=== PATIENT | male | born 1980 ===

== ENCOUNTER 2016-09-18 06:32 | Emergency (ER) | payer OTHER ==
[2016-09-18 06:39] VITALS: BMI 25.6
[2016-09-18 06:45] VITALS: BP 137/82; TEMP 98
[2016-09-18] MEDS ORDERED: Oxycodone/Acetaminophen 5/325 mg Tab PO STA (07:22)
--- NOTE | 2016-09-18 07:32 | ED PDOC ---
Arrival/HPI - General Chief Complaint: Lower Extremity Problem/Injury Time Seen by Provider: 09/18/16 07:01 Historian: Patient - History of Present Illness Narrative History of Present Illness (Text): 09/18/16 07:20 Bandar Villagomez is a 36 year old male, whose past medical history includes herniated disc, who presents to the emergency department complaining of lower back pain radiating to his buttocks and left calf for three days. Patient states that he had an MRI 12 days ago and had injections 3 days ago for his herniated disc. Patient was prescribed medication such as ibuprofen, Gabapentin , and Percocet which ran out three days ago. Patient denies any fever, chills, chest pain, shortness of breath, nausea, vomiting, diarrhea, urinary symptoms, neck pain, headache, dizziness, or any other complaints. Time/Duration: < week Symptom Onset: Gradual Symptom Course: Worsening Severity Level: Moderate Activities at Onset: Light Modifying Factors (Text): Pain worsens with movement of area Context: Home Past Medical History - Provider Review Nursing Documentation Reviewed: Yes - Infectious Disease Hx of Infectious Diseases: None - Musculoskeletal/Rheumatological Hx Back Pain: Yes Hx Herniated Disk: Yes - Psychiatric Hx Substance Use: No - Surgical History Hx Orthopedic Surgery: Yes (bilateral knee) - Anesthesia Hx Anesthesia: No Family/Social History - Physician Review Nursing Documentation Reviewed: Yes Family/Social History: No Known Family HX Smoking Status: Never Smoked Hx Alcohol Use: Yes Frequency of alcohol use: Socially Hx Substance Use: No Allergies/Home Meds Allergies/Adverse Reactions: Allergies No Known Allergies Allergy (Verified 08/23/16 08:31) Home Medications: Home Meds Medication Instructions Recorded Confirmed Ibuprofen [Motrin] 800 mg PO Q6H PRN 06/02/16 09/18/16 Gabapentin [Neurontin] 100 mg PO TID 09/18/16 09/18/16 Review of Systems - Review of Systems Constitutional: absent: Fevers, Night Sweats Eyes: absent: Vision Changes ENT: absent: Hearing Changes Respiratory: absent: SOB, Cough Cardiovascular: absent: Chest Pain Gastrointestinal: absent: Abdominal Pain Genitourinary Male: absent: Urinary Output Changes Musculoskeletal: Back Pain, Other (Left Calf Pain radiating up left side ) Skin: absent: Rash Neurological: absent: Headache Endocrine: absent: Diaphoresis Hemo/Lymphatic: absent: Easy Bleeding Psychiatric: absent: Depression Physical Exam Vital Signs Reviewed: Yes Vital Signs Temp Pulse Resp BP Pulse Ox 09/18/16 07:42 82 18 100 09/18/16 06:32 98.0 F 78 16 137/82 91 L Temperature: Afebrile Blood Pressure: Normal Pulse: Regular Respiratory Rate: Normal Appearance: Positive for: Well-Appearing, Non-Toxic, Comfortable Pain Distress: None Mental Status: Positive for: Alert and Oriented X 3 - Systems Exam Head: Present: Atraumatic, Normocephalic Pupils: Present: PERRL Extroacular Muscles: Present: EOMI Conjunctiva: Present: Normal Mouth: Present: Moist Mucous Membranes Neck: Present: Normal Range of Motion Respiratory/Chest: Present: Clear to Auscultation, Good Air Exchange. No: Respiratory Distress, Accessory Muscle Use Cardiovascular: Present: Regular Rate and Rhythm, Normal S1, S2. No: Murmurs Abdomen: Present: Normal Bowel Sounds. No: Tenderness, Distention, Peritoneal Signs Back: Present: Other (Left Lower Lumbar and Buttocks Tenderness) Upper Extremity: Present: Normal Inspection. No: Cyanosis, Edema Lower Extremity: Present: Normal Inspection. No: Edema Neurological: Present: GCS=15, CN II-XII Intact, Speech Normal Skin: Present: Warm, Dry, Normal Color. No: Rashes Psychiatric: Present: Alert, Oriented x 3, Normal Insight, Normal Concentration Medical Decision Making ED Course and Treatment: 09/18/16 07:20 Impression: 36 year old male complaining of left-sided back pain radiating to his buttocks for three days Differential Diagnosis included but are not limited to: Sciatica Plan: -- Percocet -- Reassess and disposition Prior Visits: Notes and results from previous visits were reviewed. Patient last seen in the ED on 08/23/16 for worsening lower back pain. Patient was discharged home. Progress Notes: 09/18/16 07:58 Patient was explained that he was prescribed narcotics on 09/02/15 and 09/10/15 according to the [facility] aware website. He was aware of this. I explained to him that I can offer him dose of percocet now and that I could then provide alternate methods of pain control. He agreed to flexeril for a muscle relaxant. He already has gabapentin at home and a f/u with his doctor on Wednesday. He was very upset that we couldn't prescribe percocet and left quickly ambulating with a steady gait after he received his medication. - Medication Orders Current Medication Orders: Discontinued Medications Oxycodone/Acetaminophen (Percocet 5/325 Mg Tab) 1 tab PO STAT STA Stop: 09/18/16 07:23 Last Admin: 09/18/16 07:36 Dose: 1 TAB - Scribe Statement The provider has reviewed the documentation as recorded by the Akira Horan Provider Scribe Attestation: All medical record entries made by the Scribe were at my direction and personally dictated by me. I have reviewed the chart and agree that the record accurately reflects my personal performance of the history, physical exam, medical decision making, and the department course for this patient. I have also personally directed, reviewed, and agree with the discharge instructions and disposition. Disposition/Present on Arrival - Present on Arrival Any Indicators Present on Arrival: No History of DVT/PE: No History of Uncontrolled Diabetes: No Urinary Catheter: No History of Decub. Ulcer: No History Surgical Site Infection Following: None - Disposition Have Diagnosis and Disposition been Completed?: Yes Diagnosis: Sciatica Disposition: HOME/ ROUTINE Disposition Time: 07:42 Patient Plan: Discharge Condition: IMPROVED Discharge Instructions (ExitCare): Sciatica (ED) Additional Instructions: Mr Villagomez, thank you for letting us take care of you today. Your provider was Dr. Ralph. You were treated for Sciatica. The emergency medical care you received today was directed at your acute symptoms. If you were prescribed any medication , please fill it and take as directed. It may take several days for your symptoms to resolve. Return to the Emergency Department if your symptoms worsen , do not improve, or if you have any other problems. Please contact your doctor or call one of the physicians/clinics you have been referred to that are listed on the Patient Visit Information form that is included in your discharge packet. Bring any paperwork you were given at discharge with you along with any medications you are taking to your follow up visit. Our treatment cannot replace ongoing medical care by a primary care provider (PCP) outside of the emergency department. Thank you for allowing the [facility] hospital team to be part of your care today. If you had an X-Ray or CT scan: A Radiologist will review the ED reading if any change in treatment is needed we will contact you. If you had a blood, urine, or wound culture: It will take several days for the results, if any change in treatment is needed we will contact you. If you had an STI test: It will take 48 hours for the results. Please call after 1 week if you have not heard back. Prescriptions: Cyclobenzaprine [Cyclobenzaprine HCl] 10 mg PO Q8 #20 tab Referrals: [facility] Elliot Hernandez, [Non-Staff] - Follow up with primary Forms: WORK NOTE
[2016-09-18 07:42] VITALS: PULSE 82; RESP 18; O2SAT 100
== END 2016-09-18 07:42 | disposition home or self-care (01) ==
LOC: ED 06:32
DX: M54.30 Sciatica, unspecified side (principal)

== ENCOUNTER 2017-01-06 19:33 | Emergency (ER) | payer OTHER ==
[2017-01-06 19:48] VITALS: BMI 24.3
[2017-01-06 19:49] VITALS: BP 146/75; PULSE 80; RESP 18; TEMP 98; O2SAT 100
--- NOTE | 2017-01-06 20:04 | ED PDOC ---
Arrival/HPI - General Chief Complaint: Back Pain Time Seen by Provider: 01/06/17 19:45 - History of Present Illness Narrative History of Present Illness (Text): 01/06/17 20:04 Patient presents complaining of back pain. States the location is in the L. lower lumbar region, feels like muscle spasms. Worst with movement and palpation. Pt states this feels identical to previous back pain quality that has happened in the past. Denies fevers/chills, denies IVDA, denies any lower extremity weakness/numbness/paresthesias. Pt denies saddle anesthesia. Denies any urinary freq or retention. Denies bowel dysfunction/irregularity/ incontinence/constipation. Past Medical History - Provider Review Nursing Documentation Reviewed: Yes - Infectious Disease Hx of Infectious Diseases: None - Cardiac Hx Cardiac Disorders: No - Pulmonary Hx Respiratory Disorders: No - Neurological Hx Neurological Disorder: No - HEENT Hx HEENT Disorder: No - Renal Hx Renal Disorder: No - Endocrine/Metabolic Hx Endocrine Disorders: No - Hematological/Oncological Hx Blood Disorders: No - Integumentary Hx Dermatological Disorder: No - Musculoskeletal/Rheumatological Hx Musculoskeletal Disorders: Yes Hx Back Pain: Yes Hx Herniated Disk: Yes - Gastrointestinal Hx Gastrointestinal Disorders: No - Genitourinary/Gynecological Hx Genitourinary Disorders: No - Psychiatric Hx Psychophysiologic Disorder: No Hx Substance Use: No - Surgical History Hx Orthopedic Surgery: Yes (bilateral knee, herniated disc) - Anesthesia Hx Anesthesia: No Family/Social History Family/Social History: Unknown Family HX Smoking Status: Never Smoked Hx Alcohol Use: Yes Hx Substance Use: No Allergies/Home Meds Allergies/Adverse Reactions: Allergies No Known Allergies Allergy (Verified 01/06/17 19:49) Home Medications: Home Meds Medication Instructions Recorded Confirmed Ibuprofen [Motrin] 800 mg PO Q6H PRN 06/02/16 01/06/17 Gabapentin [Neurontin] 100 mg PO TID 09/18/16 01/06/17 Physical Exam - Physical Exam Narrative Physical Exam (Text): - Review of Systems Constitutional: Normal. absent: Fatigue, Weight Change, Fevers Eyes: Normal ENT: denies sore throat, denies tristhmus Respiratory: Normal. absent: SOB, Cough, Sputum Cardiovascular: absent: Chest Pain, Palpitations, Syncope Gastrointestinal: Normal. absent: Abdominal Pain, Diarrhea, Nausea, Vomiting Genitourinary: Normal. absent: Dysuria, Frequency, Hematuria Musculoskeletal: back pain. absent: Arthralgias, Neck Pain Skin: no rashes, no erythema Neurological: absent: Focal Weakness Endocrine: Normal Hemo/Lymphatic: Normal Psychiatric: No suicidal or homicidal ideations Physical exam Patient appears age appropriate in no distress, speaking full sentences without difficulty Increased hypertonicity appreciated in the left lower lumbar region and left PSIS, pain quality reproduced with palpation. No midline tenderness. FROM of pt' s cervical, thoracic, lumbar, and sacral regions appreciated, active/passive without any difficulty. Lower extremities with full neurological and vascular intact. Steady gait. - Systems Exam Head: Present: Atraumatic, Normocephalic Pupils: Present: PERRL Extroacular Muscles: Present: EOMI Conjunctiva: Present: Normal Mouth: Present: Moist Mucous Membranes Neck: Present: Normal Range of Motion. No: MIDLINE TENDERNESS, Paraspinal Tenderness Respiratory/Chest: Present: Clear to Auscultation, Good Air Exchange. No: Respiratory Distress, Accessory Muscle Use, Tachypneic Cardiovascular: Present: Regular Rate and Rhythm, Normal S1, S2, Peripheal Pulses Present. No: Murmurs Abdomen: Present: Normal Bowel Sounds. No: Tenderness, Distention, Peritoneal Signs, Rebound, Guarding Back: No: Midline Tenderness Upper Extremity: Present: Normal Inspection. No: Cyanosis, Edema Lower Extremity: Present: Normal Inspection. No: Edema Neurological: Present: GCS=15, Speech Normal, cranial nerves II through XII fully intact with no cerebellar abnormality, neurosensory fully intact. No focal neurological deficits. Skin: Present: Warm, Dry, Normal Color. No: Rashes Lymphatic: Present: OX3, NI, NC Psychiatric: Present: Alert, Oriented x 3, Normal Insight, Normal Concentration Vital Signs Reviewed: Yes Vital Signs Temp Pulse Resp BP Pulse Ox 01/06/17 19:35 98.0 F 80 18 146/75 100 Temperature: Afebrile Blood Pressure: Normal Pulse: Regular Respiratory Rate: Normal Appearance: Positive for: Well-Appearing Pain Distress: Mild Mental Status: Positive for: Alert and Oriented X 3 Medical Decision Making ED Course and Treatment: pt received toradol and valium. Pt states is not driving home. Based on hx and physical, no suspicion for renal involvement, cord impingement or epidural/ spinal abscess stable for dc home. instructed not to drive/operate machinery/drink/do drugs with medication Pt verbalized understands to return to the ER right away for new or worsening symptoms or for inability to f/u with PMD or specialist as instructed. Patient verbalized full agreement with and understanding of discharge instructions. States that he agrees with the plan and disposition. Verbalized and repeated discharge instructions and plan. I have given the patient opportunity to ask any additional questions. - Medication Orders Current Medication Orders: Discontinued Medications Diazepam (Valium) 2 mg PO ONCE ONE Stop: 01/06/17 20:01 Last Admin: 01/06/17 20:12 Dose: 2 mg Ketorolac Tromethamine (Toradol) 15 mg IM ONCE ONE Stop: 01/06/17 20:01 Last Admin: 01/06/17 20:12 Dose: 15 mg Disposition/Present on Arrival - Present on Arrival Any Indicators Present on Arrival: No History of DVT/PE: No History of Uncontrolled Diabetes: No Urinary Catheter: No History of Decub. Ulcer: No History Surgical Site Infection Following: None - Disposition Have Diagnosis and Disposition been Completed?: Yes Diagnosis: Back pain Disposition: HOME/ ROUTINE Disposition Time: 20:01 Patient Plan: Discharge Condition: GOOD Discharge Instructions (ExitCare): Sciatica (ED), Back Pain (ED) Additional Instructions: PLEASE RETURN TO THE EMERGENCY DEPARTMENT FOR NEW OR WORSENING SYMPTOMS. RETURN RIGHT AWAY IF YOU CANNOT FOLLOW UP WITH YOUR PRIMARY CARE DOCTOR, CLINIC, OR SPECIALIST IN 1-2 DAYS. Prescriptions: Diazepam [Valium] 2 mg PO DAILY PRN #5 tab PRN Reason: Pain, Severe (8-10) Referrals: Rubens Morrell MD [Staff Provider] - Follow up with primary
== END 2017-01-06 20:27 | disposition home or self-care (01) ==
LOC: ED 19:33
DX: M54.9 Dorsalgia, unspecified (principal)
CPT/HCPCS: 96372; 99282; J1885

== ENCOUNTER 2017-01-12 21:41 | Emergency (ER) | payer OTHER ==
[2017-01-12 21:41] VITALS: BMI 24.3
[2017-01-12 22:27] VITALS: TEMP 98.8
[2017-01-12] MEDS ORDERED: Oxycodone/Acetaminophen 5/325 mg Tab PO STA (23:02)
[2017-01-12] MEDS ORDERED: Morphine 2 mg/ml ISec IM STA (23:40)
--- NOTE | 2017-01-12 23:49 | ED PDOC ---
Arrival/HPI - General Chief Complaint: Back Pain Time Seen by Provider: 01/12/17 22:12 Historian: Patient - History of Present Illness Narrative History of Present Illness (Text): 01/12/17 23:00 36 year old male, whose past medical history includes herniated disc, who presents to the ED complaining of left lower back pain radiating to his left leg. Patient states he was diagnosed with herniated disc doing physical therapy and notes everything had been improving with increased strength and weight gain. Patient states he was walking the other day while carrying groceries and woke up the next morning with severe left lower back pain. Patient was seen in the ER and given pain medication without improvement. Patient states he went to pain management, was given Gabapentin, Naprosyn, and a muscle relaxer, but pain did not improve. Patient states back pain is similar and in the same location to previous episodes but is more severe than before. Patient denies any urinary incontinence, abdominal pain, nausea, vomiting, diarrhea, fever, chills, saddle paresthesias, or any other complaints. Patient also complaining of left foot tingling sensation. Patient states pain is best when lying flat/no moving, and worse with movement especially when trying to stand up. Symptom Onset: Gradual Symptom Course: Unchanged Activities at Onset: Rest, Light Context: Home Past Medical History - Provider Review Nursing Documentation Reviewed: Yes - Infectious Disease Hx of Infectious Diseases: None - Cardiac Hx Cardiac Disorders: No - Pulmonary Hx Respiratory Disorders: No - Neurological Hx Neurological Disorder: No - HEENT Hx HEENT Disorder: No - Renal Hx Renal Disorder: No - Endocrine/Metabolic Hx Endocrine Disorders: No - Hematological/Oncological Hx Blood Disorders: No - Integumentary Hx Dermatological Disorder: No - Musculoskeletal/Rheumatological Hx Musculoskeletal Disorders: Yes Hx Back Pain: Yes Hx Herniated Disk: Yes - Gastrointestinal Hx Gastrointestinal Disorders: No - Genitourinary/Gynecological Hx Genitourinary Disorders: No - Psychiatric Hx Psychophysiologic Disorder: No Hx Substance Use: No - Surgical History Hx Orthopedic Surgery: Yes (bilateral knee, herniated disc) - Anesthesia Hx Anesthesia: No Hx Anesthesia Reactions: No Hx Malignant Hyperthermia: No Family/Social History - Physician Review Nursing Documentation Reviewed: Yes Family/Social History: Unknown Family HX Smoking Status: Never Smoked Hx Alcohol Use: Yes Hx Substance Use: No Allergies/Home Meds Allergies/Adverse Reactions: Allergies No Known Allergies Allergy (Verified 01/12/17 23:02) Review of Systems - Physician Review All systems were reviewed & negative as marked: Yes - Review of Systems Constitutional: Normal. absent: Fevers Eyes: Normal ENT: Normal Respiratory: Normal. absent: SOB, Cough Cardiovascular: Normal. absent: Chest Pain Gastrointestinal: Normal. absent: Abdominal Pain, Diarrhea, Nausea, Vomiting Genitourinary Male: Normal. absent: Dysuria, Frequency, Hematuria, Urinary Output Changes Musculoskeletal: Back Pain (+left lower back pain). absent: Neck Pain Skin: Normal Neurological: Normal Endocrine: Normal Hemo/Lymphatic: Normal Psychiatric: Normal Physical Exam Vital Signs Reviewed: Yes Vital Signs Temp Pulse Resp BP Pulse Ox 01/12/17 22:26 98.8 F 75 18 145/92 H 99 Temperature: Afebrile Blood Pressure: Normal Pulse: Regular Respiratory Rate: Normal Appearance: Positive for: Well-Appearing, Non-Toxic, Comfortable Pain Distress: None Mental Status: Positive for: Alert and Oriented X 3 - Systems Exam Head: Present: Atraumatic, Normocephalic Pupils: Present: PERRL Extroacular Muscles: Present: EOMI Conjunctiva: Present: Normal Mouth: Present: Moist Mucous Membranes Neck: Present: Normal Range of Motion Respiratory/Chest: Present: Clear to Auscultation, Good Air Exchange. No: Respiratory Distress, Accessory Muscle Use Cardiovascular: Present: Regular Rate and Rhythm, Normal S1, S2. No: Murmurs Abdomen: Present: Normal Bowel Sounds. No: Tenderness, Distention, Peritoneal Signs Back: Present: Paraspinal Tenderness (Left-sided paraspinal tenderness), Pain with Leg Raise (Positive left straight leg raise). No: Midline Tenderness (No midline bony tenderness) Upper Extremity: Present: Normal Inspection. No: Cyanosis, Edema Lower Extremity: Present: Normal Inspection, NORMAL PULSES, Normal ROM, Neurovascularly Intact (Distal neurovascularly intact), Capillary Refill < 2 s. No: Edema, CALF TENDERNESS, Tenderness, Swelling, Erythema, Deformity, Temperature Abnormalties Neurological: Present: GCS=15, Speech Normal, Motor Func Grossly Intact, Normal Sensory Function, Gait Normal Skin: Present: Warm, Dry, Normal Color. No: Rashes Psychiatric: Present: Alert, Oriented x 3 Medical Decision Making ED Course and Treatment: 01/12/17 23:00 Impression: 36 year old male c/o left lower back pain radiating down left leg, worse with movement. Plan: -- Flexeril -- Toradol -- Percocet -- Urinalysis - Reassess and disposition Progress Notes: pt with continued pain. morphine and decadron added. 01/13/17 00:54 MRI reviewed from 08/2016 patient with large left-sided herniated disc in the lumbar spine UA; wnl pt reassessment; pt feeling much better after medications; will d/c home with percocet; advised f/u with orthopedist,pain management. advised immediate return if symptoms worsen,persist or if new symptoms develop. Patient verbalized full agreement with and understanding of discharge instructions. States that he agrees with the plan and disposition. Verbalized and repeated discharge instructions and plan. I have given the patient opportunity to ask any additional questions. all aspects of this case were discussed the attending of record. Impression: Back pain continue medications as prescribed Percocet 1 tablet every 6 hours as needed for moderate to severe pain: may cause drowsiness Follow-up with the primary care physician within the next 2 days Follow-up with the orthopedist/specialist within the next 2 days Return immediately if symptoms worsen persist or if new concerning symptoms develop Reassessment Condition: Re-examined, Improved - Lab Interpretations Lab Results: Lab Results 01/12/17 23:21: Urine Color Yellow, Urine Appearance Clear, Urine pH 6.0, Ur Specific Crucible 1.025, Urine Protein Negative, Urine Glucose (UA) Negative, Urine Ketones Negative, Urine Blood Negative, Urine Nitrate Negative, Urine Bilirubin Negative, Urine Urobilinogen 0.2, Ur Leukocyte Esterase Negative I have reviewed the lab results: Yes - Medication Orders Current Medication Orders: Discontinued Medications Cyclobenzaprine HCl (Flexeril) 10 mg PO STAT STA Stop: 01/12/17 23:03 Last Admin: 01/12/17 23:26 Dose: 10 mg Dexamethasone (Decadron Inj) 10 mg IM STAT STA Stop: 01/12/17 23:39 Last Admin: 01/12/17 23:50 Dose: 10 mg Ketorolac Tromethamine (Toradol) 60 mg IM STAT STA Stop: 01/12/17 23:03 Last Admin: 01/12/17 23:26 Dose: 60 mg Re-Assess: MAR Pain Assessment Document 01/13/17 00:26 RD (Rec: 01/13/17 00:42 [facility] [id number] Pain Reassessment Is this a pain reassessment? Yes Sleep Is patient sleeping during reassessment? No Presence of Pain Presence of Pain Yes Pain Scale Used Pain Scale Used Numeric Location Upper or Lower Lower Pain Location Body Site Back Description Acceptable Level of Pain 5 Morphine Sulfate (Morphine) 2 mg IM STAT STA Stop: 01/12/17 23:41 Last Admin: 01/12/17 23:50 Dose: 2 mg Oxycodone/Acetaminophen (Percocet 5/325 Mg Tab) 1 tab PO STAT STA Stop: 01/12/17 23:03 Last Admin: 01/12/17 23:26 Dose: 1 tab Re-Assess: OFELIA Pain Assessment Document 01/13/17 00: (Rec: 01/13/17 00:42 [facility] [id number]) Pain Reassessment Is this a pain reassessment? Yes Sleep Is patient sleeping during reassessment? No Presence of Pain Presence of Pain Yes Pain Scale Used Pain Scale Used Numeric Location Upper or Lower Lower Pain Location Body Site Back Description Acceptable Level of Pain 5 - Scribe Statement The provider has reviewed the documentation as recorded by the Akira Mendoza Provider Scribe Attestation: All medical record entries made by the Scribe were at my direction and personally dictated by me. I have reviewed the chart and agree that the record accurately reflects my personal performance of the history, physical exam, medical decision making, and the department course for this patient. I have also personally directed, reviewed, and agree with the discharge instructions and disposition. Disposition/Present on Arrival - Present on Arrival Any Indicators Present on Arrival: No History of DVT/PE: No History of Uncontrolled Diabetes: No Urinary Catheter: No History of Decub. Ulcer: No History Surgical Site Infection Following: None - Disposition Have Diagnosis and Disposition been Completed?: Yes Diagnosis: Back pain Disposition: HOME/ ROUTINE Disposition Time: 00:56 Patient Plan: Discharge Patient Problems: Current Active Problems Problem Status Onset Back pain Acute Condition: GOOD Discharge Instructions (ExitCare): Back Pain (ED) Additional Instructions: continue medications as prescribed Percocet 1 tablet every 6 hours as needed for moderate to severe pain: may cause drowsiness Follow-up with the primary care physician within the next 2 days Follow-up with the orthopedist/specialist within the next 2 days Return immediately if symptoms worsen persist or if new concerning symptoms develop Prescriptions: oxyCODONE/Acetaminophen [Percocet 5/325 mg Tab] 1 tab PO Q6H PRN #10 tab PRN Reason: moderate to severe pain Referrals: Jennifer Buck DO [Primary Care Provider] - Follow up with primary [facility] [place] - Follow up with primary [facility] [place] [Outside] - Follow up with primary Malachi Engel MD [Staff Provider] - Follow up with primary Timothy Carbone MD [Staff Provider] - Follow up with primary
[2017-01-12 23:58] LABS: URINE BILIRUBIN NEGATIVE (NEGATIVE); URINE BLOOD NEGATIVE (NEGATIVE); URINE GLUCOSE (UA) NEGATIVE (NEGATIVE); URINE LEUKOCYTE ESTERASE NEGATIVE Leu/uL (NEGATIVE); URINE NITRATE NEGATIVE (NEGATIVE); URINE PROTEIN NEGATIVE mg/dL (<30 mg/dL); URINE UROBILINOGEN 0.2 E.U./dL (<1 E.U./dL)
[2017-01-13 00:02] LABS: URINE APPEARANCE CLEAR (CLEAR); URINE COLOR YELLOW (YELLOW)
[2017-01-13 01:06] VITALS: BP 126/81; PULSE 71; RESP 17; O2SAT 97
== END 2017-01-13 01:06 | disposition home or self-care (01) ==
LOC: ED 21:41
DX: M54.9 Dorsalgia, unspecified (principal)
CPT/HCPCS: 81003; 96372; 99283; J1100; J1885; J2270

== ENCOUNTER 2017-01-24 14:25 | Emergency (ER) | payer OTHER ==
[2017-01-24 14:45] VITALS: BMI 24.7
[2017-01-24 14:49] VITALS: BP 125/82; PULSE 80; RESP 18; TEMP 97.8; O2SAT 100
--- NOTE | 2017-01-24 15:15 | ED PDOC ---
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 Patient stated he was angry, so he punched the wall. He denies wrist pain, finger pain, elbow pain or shoulder pain. Denies SI, or HI. Patient is right hand dominant. Time/Duration: Prior to Arrival Quality: Aching Context: Home Past Medical History - Provider Review Nursing Documentation Reviewed: Yes - Infectious Disease Hx of Infectious Diseases: None - Cardiac Hx Cardiac Disorders: No - Pulmonary Hx Respiratory Disorders: No - Neurological Hx Neurological Disorder: No - HEENT Hx HEENT Disorder: No - Renal Hx Renal Disorder: No - Endocrine/Metabolic Hx Endocrine Disorders: No - Hematological/Oncological Hx Blood Disorders: No - Integumentary Hx Dermatological Disorder: No - Musculoskeletal/Rheumatological Hx Musculoskeletal Disorders: Yes Hx Back Pain: Yes Hx Herniated Disk: Yes Other/Comment: sciatica - Gastrointestinal Hx Gastrointestinal Disorders: No - Genitourinary/Gynecological Hx Genitourinary Disorders: No - Psychiatric Hx Psychophysiologic Disorder: No Hx Substance Use: No - Surgical History Hx Orthopedic Surgery: Yes (bilateral knee, herniated disc) Other/Comment: milvia ear tubes - Anesthesia Hx Anesthesia: Yes Hx Anesthesia Reactions: No Hx Malignant Hyperthermia: No Family/Social History - Physician Review Nursing Documentation Reviewed: Yes Family/Social History: No Known Family HX Smoking Status: Never Smoked Hx Alcohol Use: Yes Hx Substance Use: No Allergies/Home Meds Allergies/Adverse Reactions: Allergies No Known Allergies Allergy (Verified 01/12/17 23:02) Home Medications: Home Meds Medication Instructions Recorded Confirmed Gabapentin [Gabapentin] 1,200 mg PO TID 01/24/17 01/24/17 Ibuprofen [Motrin Tab] 1 tab PO TID 01/24/17 01/24/17 tiZANidine [Zanaflex] 1 tab PO TID 01/24/17 01/24/17 Review of Systems - Review of Systems Constitutional: Normal. absent: Fatigue, Weight Change, Fevers, Night Sweats Eyes: Normal ENT: Normal Respiratory: Normal. absent: SOB, Cough, Sputum Cardiovascular: Normal. absent: Chest Pain, Palpitations Gastrointestinal: Normal. absent: Abdominal Pain, Nausea, Vomiting Genitourinary Male: Normal. absent: Dysuria, Frequency, Hematuria Musculoskeletal: Other (see hpi) Skin: Normal. absent: Rash Neurological: Normal. absent: Headache, Dizziness, Focal Weakness, Gait Changes , Speech Changes, Facial Droop, Disequilibrium Endocrine: Normal Hemo/Lymphatic: Normal Psychiatric: Normal Physical Exam Vital Signs Temp Pulse Resp BP Pulse Ox 01/24/17 14:48 97.8 F 80 18 125/82 100 Temperature: Afebrile Blood Pressure: Normal Pulse: Regular Respiratory Rate: Normal Appearance: Positive for: Well-Appearing, Non-Toxic, Comfortable Pain Distress: None Mental Status: Positive for: Alert and Oriented X 3 - Systems Exam Head: Present: Atraumatic, Normocephalic Pupils: Present: PERRL Extroacular Muscles: Present: EOMI Conjunctiva: Present: Normal Mouth: Present: Moist Mucous Membranes Neck: Present: Normal Range of Motion Respiratory/Chest: Present: Clear to Auscultation, Good Air Exchange. No: Respiratory Distress, Accessory Muscle Use Cardiovascular: Present: Regular Rate and Rhythm, Normal S1, S2. No: Murmurs Abdomen: Present: Normal Bowel Sounds. No: Tenderness, Distention, Peritoneal Signs Back: Present: Normal Inspection Upper Extremity: Present: NORMAL PULSES, Tenderness ((+) mild tenderness near left 5th MPJ with mild ecchymosisn, and swelling), Neurovascularly Intact, Capillary Refill < 2s. No: Cyanosis, Edema, Erythema, Temperature Abnormalties Lower Extremity: Present: Normal Inspection, Normal ROM, Capillary Refill < 2 s. No: Edema Neurological: Present: GCS=15, CN II-XII Intact, Speech Normal Skin: Present: Warm, Dry, Normal Color. No: Rashes Psychiatric: Present: Alert, Oriented x 3, Normal Insight, Normal Concentration Medical Decision Making ED Course and Treatment: 01/24/17 15:59 Re-evaluation. Patient feels better. Discussed results and plan with patient who expresses understanding. Counseling was provided regarding the diagnosis and prognosis. All questions answered and there is agreement with the plan to discharge home with instructions. Patient stable for discharge. Return if symptoms persist or worsen. Gutter splint position by me. n/v intact. capillary refill < 2 sec. [place] [facility] referral given to patient. Re-evaluation Time: 16:00 Reassessment Condition: Re-examined, Improved - RAD Interpretation Narrative RAD Interpretations (Text): 01/24/17 16:00 Hand x-rays: (+) boxer's fx. Radiology Orders: 01/24/17 15:14 HAND LEFT 3 VIEWS ROUTINE [RAD] Stat - Medication Orders Current Medication Orders: Discontinued Medications Ibuprofen (Motrin Tab) 600 mg PO STAT STA Stop: 01/24/17 15:19 Last Admin: 01/24/17 15:44 Dose: 600 mg - Procedure PROCEDURE NOTE (Text): Procedure: $ inch Gutter ortho splint was placed by me on his hand. Patient the finger was placed on 45 degrees flexion, and dorsiflexin of wrist joit. Capillary refilled < 2 sec. n/v intact. Radial pulse +2 Disposition/Present on Arrival - Present on Arrival Any Indicators Present on Arrival: No History of DVT/PE: No History of Uncontrolled Diabetes: No Urinary Catheter: No History of Decub. Ulcer: No History Surgical Site Infection Following: None - Disposition Have Diagnosis and Disposition been Completed?: Yes Diagnosis: Boxers fracture Disposition: HOME/ ROUTINE Disposition Time: 16:01 Patient Plan: Discharge Condition: GOOD Discharge Instructions (ExitCare): Boxer Fracture (ED) Additional Instructions: Call private doctor for follow up visit in 1-2 days. Call [facility] for follow up visit. Keep hand elevated, rest, sling till evaluated by orthopedist. Keep splint clean and dry. Return to emergency if symptoms worsen. Prescriptions: Ibuprofen [Motrin] 600 mg PO Q8 PRN #20 tab PRN Reason: Pain, Severe (8-10) Referrals: [facility] [Outside] - Follow up with primary [facility] [Outside] - Follow up with primary Ney Buck [facility] [Primary Care Provider] - Follow up with primary Forms: [employer] (French)
--- NOTE | 2017-01-24 15:57 | RAD ---
PROCEDURE: Left Hand Radiographs. HISTORY: Pain COMPARISON: None. FINDINGS: BONES: There is an acute transverse nondisplaced fracture in the neck of the 5th metacarpal with mild dorsal angulation. Bone alignment is normal. Bone mineralization is normal JOINTS: Normal. SOFT TISSUES: There is mild soft tissue swelling overlying the 5th metacarpal. OTHER FINDINGS: None. IMPRESSION: Acute transverse nondisplaced fracture in the neck of the 5th metacarpal with mild dorsal angulation.
== END 2017-01-24 16:07 | disposition home or self-care (01) ==
LOC: ED 14:25
DX: S62.367A Nondisplaced fracture of neck of fifth metacarpal bone, left hand, initial encounter for closed fracture (principal); W22.01XA Walked into wall, initial encounter; Y93.9 Activity, unspecified; Y92.9 Unspecified place or not applicable